=== PATIENT | male | born 1975 | race Caucasian/White ===

== ENCOUNTER 2022-02-06 18:20 | Emergency (ER) | payer BC, SELFPAY ==
[2022-02-06 18:26] VITALS: BP 119/80; PULSE 80; RESP 16; TEMP 36.7; O2SAT 100
--- NOTE | 2022-02-06 18:37 | ED.SKABFB ---
HPI - Skin/Abscess/Foreign Bdy General Chief complaint: Skin/Abscess/Foreign Body Stated complaint: Foreigh Body in Left Leg Time Seen by Provider: 02/06/22 18:45 Source: patient Mode of arrival: ambulatory Limitations: no limitations History of Present Illness HPI narrative: 46-year-old male presented with complaint of splinter to the left side of the leg just below the knee. He states he was cutting down trees and a piece of wood got lodged in the skin. At home he attempted to dislodge it by making a baking soda paste and using tweezers. He states his removed a small piece that he feels a piece remains in the skin. Also used antiseptic solution and rinsed with water. He trimmed the hair surrounding the site. MD complaint: rash Related Data Home Medications Medication Instructions Recorded Confirmed valacyclovir 1 gram tablet 1,000 mg PO Q8H 02/06/22 02/06/22 Allergies Allergy/AdvReac Type Severity Reaction Status Date / Time No Known Allergies Allergy Verified 02/06/22 18:38 Review of Systems Review of Systems: CONSTITUTIONAL: Denies body aches, fever, chills, or sweats. CARDIOVASCULAR: Denies chest pain, palpitations, or edema. RESPIRATORY: Denies cough or dyspnea. SKIN: Left leg wound with piece of tree MUSCULOSKELETAL: Denies back pain, joint pain, or myalgia. NEUROLOGIC: Denies headache, numbness, tingling, or weakness. PMFSH Comments At time of signature, I have reviewed and agree with nursing past medical, surgical, social and family history unless otherwise noted. Please see nursing chart for further information. There is no relevant family history pertinent to the presenting complaint Exam Narrative: GENERAL: Well-appearing EYES: PERRLA, conjunctivae clear, and EOMI. ENT: Mucous membranes moist. CHEST: Clear to auscultation. No respiratory distress. HEART: Regular rate and rhythm. SKIN: Warm, dry. Left lateral lower leg with approx 0.5cm open skin no bleeding, FB noted NEURO: Alert and oriented x3. PSYCH: Normal mood and affect Course Course Emergency Course: Patient is aware of diagnosis, understands and agrees to treatment plan. Anticipatory guidance given. Patient agrees to follow-up as directed and is aware of reasons to seek care at the emergency department. Portions of this record may have been created with voice recognition software Level of Care: Express Care Visit Vital Signs Vital signs: Vital Signs Temperature 98.1 F 02/06/22 18:26 Pulse Rate 80 02/06/22 18:26 Respiratory Rate 16 02/06/22 18:26 Blood Pressure 119/80 02/06/22 18:26 Pulse Oximetry 100 02/06/22 18:26 Oxygen Delivery Room Air 02/06/22 18:26 Temperature 98.1 F 02/06/22 18:26 Pulse Rate 80 02/06/22 18:26 Respiratory Rate 16 02/06/22 18:26 Blood Pressure 119/80 02/06/22 18:26 Pulse Oximetry 100 02/06/22 18:26 Oxygen Delivery Room Air 02/06/22 18:26 Reviewed Procedures Foreign Body Removal Foreign Body #1: Foreign Body Removal Date: 02/06/22 Site: left and lower extremity Description of foreign body: other (splinter/piece of tree) Sedation/Analgesia: other Technique: other (removed using tweezers) Confirmed by:: direct visualization, patient report and palpation Complications: none Post-procedure exam: awake, alert Neurovascular: no change from pre-procedure Foreign Body Removal Narrative: LET gel applied prior to removal, wound cleansed with technicare. DIONISIO and bandaid applied. MDM - Skin/Abscess/Foreign Bdy MDM Narrative Medical decision making narrative: Instructed patient to go to nearest ER immediately for any worsening symptoms. Keflex prescription for prophylaxis. Advised wound care. Verbalizes understanding. Differential Diagnosis Differential diagnosis: Likely abscess of skin or subcutaneous tissue, urticaria, herpes zoster, cellulitis, contact dermatitis and other (Fore
[2022-02-06] MEDS: TETANUS,DIPHTHERIA,AC PERTUSSIS ADULT (0.5 ML) BOOSTRIX IM (18:59)
== END 2022-02-06 19:23 | disposition home or self-care (01) ==
PROVIDERS: Emergency Provider Nurse Practitioner Family
DX: S81.842A Puncture wound with foreign body, left lower leg, initial encounter (principal); Z23 Encounter for immunization; W45.8XXA Other foreign body or object entering through skin, initial encounter
CPT/HCPCS: 90715; 99213; G0463